=== PATIENT | female | born 1970 | race American Indian/Alaskan Native ===

== ENCOUNTER 2016-09-06 15:14 | Inpatient (IN) | payer SELFPAY ==
--- NOTE | 2016-09-06 15:45 | Emergency Department Report ---
ED Neuro Deficit HPI - General Chief Complaint: Neuro Symptoms/Deficit Stated Complaint: HIGH BP Time Seen by Provider: 09/06/16 15:40 Source: patient Mode of arrival: Ambulatory Limitations: No Limitations - History of Present Illness Initial Comments: This is a 45-year-old female. She is previously unknown to me. Has a past medical history of elevated blood pressure. Patient presents to the ER as a possible code stroke. As per verbal report from the triage nurse, the patient presented to the emergency room with left-sided weakness in the arm, and left facial droop and garbled speech. When I'm evaluating the patient, the symptoms have resolved. The patient complains of feeling globally weak. She reports that her body feels totally weak, and feels that her body is "totally dragging. " She has occipital headache. The headache is not sudden or thunderclap in nature. It did not reach maximal intensity within an hour. There is no chest pain. There is no shortness of breath. Patient reports her symptoms are constant. She thinks this started sometime between 12 PM and 1 PM. -: Gradual Location: speech, left face Presenting Symptoms: Present: Weak/Paralyzed One Side, Facial Droop/Numbness History of same: No Severity: moderate Quality: weak Improves With: none Worsens With: none On Anticoagulants: No Context: gradual onset Associated Symptoms: malise, weakness. denies: confusion, chest pain, cough, diaphoresis - Related Data Home Medications: Previous Rx's Medication Instructions Recorded Last Taken Type Lisinopril/Hydrochlorothiazide 1 tab PO QDAY #30 tablet 08/06/13 Unknown Rx [Zestoretic 20-25 mg] Meloxicam [Mobic] 7.5 mg PO QDAY #15 tablet 08/06/13 Unknown Rx Allergies/Adverse Reactions: Allergies Allergy/AdvReac Type Severity Reaction Status Date / Time No Known Allergies Allergy Verified 08/05/13 20:42 ED Review of Systems ROS: Stated complaint: HIGH BP Other details as noted in HPI Constitutional: malaise, weakness Eyes: denies: vision change ENT: denies: epistaxis Respiratory: denies: cough Cardiovascular: denies: chest pain Gastrointestinal: denies: abdominal pain, nausea, diarrhea Genitourinary: denies: urgency, dysuria, discharge Musculoskeletal: denies: back pain, joint swelling, arthralgia Skin: denies: rash, lesions Neurological: headache, weakness Psychiatric: depression ED Past Medical Hx - Past Medical History Previous Medical History?: Yes Hx Hypertension: Yes (out of meds) Hx Arthritis: Yes Hx Asthma: Yes - Surgical History Past Surgical History?: No - Social History Smoking Status: Never Smoker Substance Use Type: Alcohol, Prescribed - Medications Home Medications: Home Medications Medication Instructions Recorded Confirmed Last Taken Type Lisinopril/Hydrochlorothiazide 1 tab PO QDAY #30 tablet 08/06/13 Unknown Rx [Zestoretic 20-25 mg] Meloxicam [Mobic] 7.5 mg PO QDAY #15 tablet 08/06/13 Unknown Rx ED Neuro Physical Exam - General Limitations: No Limitations General appearance: alert, in no apparent distress Suspected Stroke: Yes - Head Head exam: Present: atraumatic, normocephalic - Eye Eye exam: Present: normal appearance, EOMI. Absent: nystagmus - ENT ENT exam: Present: normal exam, normal orophraynx, mucous membranes moist, normal external ear exam - Neck Neck exam: Present: normal inspection, full ROM. Absent: tenderness, meningismus - Respiratory Respiratory exam: Present: normal lung sounds bilaterally. Absent: respiratory distress, wheezes, rales, rhonchi, stridor, decreased breath sounds - Cardiovascular Cardiovascular Exam: Present: regular rate, normal rhythm, normal heart sounds. Absent: bradycardia, tachycardia, irregular rhythm, systolic murmur, diastolic murmur, rubs, gallop - GI/Abdominal GI/Abdominal exam: Present: soft, normal bowel sounds. Absent: distended, tenderness, guarding, rebound, rigid, pulsatile mass - Extremities Exam Extremities exam: Present: normal inspection, full ROM, normal capillary refill. Absent: tenderness, pedal edema, joint swelling, calf tenderness - Back Exam Back exam: Present: normal inspection, full ROM. Absent: tenderness, CVA tenderness (R), CVA tenderness (L), muscle spasm, paraspinal tenderness, vertebral tenderness - Neurological Exam Neurological exam: Present: alert, oriented X3, other (Extraocular movements intact. Tongue midline. No facial droop. Facial sensation intact to light touch in the V1, V2, V3 distribution bilaterally. 5 and 5 strength in 4 extremities.. Sensation is intact to light touch in 4 extremities.). Absent: motor sensory deficit - NIHSS Assessment Interval: Baseline 1a. Level of Consciousness: alert 1b. LOC Questions: answers correctly 1c. LOC Commands: performs tasks correctly 2. Best Gaze: normal 3. Visual: no visual loss 4. Facial Palsy: normal symmetrical movement 5b. Motor Arm Right: no drift 5a. Motor Arm Left: no drift 6a. Motor Leg Left: no drift 6b. Motor Leg Right: no drift 7. Limb Ataxia: absent 8. Sensory: normal 9. Best Language: no aphasia 10. Dysarthria: normal 11. Extinction/Inattention: no abnormality Total Score: 0 Stroke Severity: No Stroke Symptoms - Psychiatric Psychiatric exam: Present: anxious - Skin Skin exam: Present: warm, dry, intact, normal color. Absent: rash ED Course Vital Signs 09/06/16 09/06/16 09/06/16 15:20 16:07 17:00 Temperature 98.7 F Pulse Rate 63 60 99 H Respiratory 18 14 16 Rate Blood Pressure 190/133 Blood Pressure 194/83 183/105 [Left] O2 Sat by Pulse 100 100 99 Oximetry 09/06/16 09/06/16 09/06/16 17:20 18:00 18:30 Temperature 98.7 F Pulse Rate 74 96 H Respiratory 18 Rate Blood Pressure 180/105 Blood Pressure 171/53 [Left] O2 Sat by Pulse 96 99 Oximetry 09/06/16 18:51 Temperature 98.7 F Pulse Rate 95 H Respiratory 18 Rate Blood Pressure Blood Pressure 174/84 [Left] O2 Sat by Pulse 95 Oximetry - Reevaluation(s) Reevaluation #1: 09/06/16 15:46 Differential diagnosis: Transient ischemic attack, anxiety, conversion disorder assessment and plan: 45-year-old female with resolved garbled speech, no obvious facial droop on my examination, 5/5 strength in the bilateral upper and lower extremities. I don't believe patient is a TPA candidate at this time. A code stroke was called overhead. Laboratory studies, CT scan, tele neurology consult are ordered. The patient indicates that she is not . She indicates she is not having chest pain or abdominal pain. Reevaluation #2: 09/06/16 16:23 The patient is seen independently by the neurology specialist, Dr. Narinder Duvall, who independently agrees that the patient is not a TPA candidate. The patient's blood pressure is markedly elevated, may have a component of hypertensive encephalopathy. Aspirin, hydralazine is ordered. Case is discussed with the Hospital physician, Dr. Rocha, who accepts the patient to his service. - Lab Data Result diagrams: 09/06/16 Unknown 09/06/16 Unknown Lab Results 09/06/16 Range/Units 16:07 POC Glucose 81 (70-105) Vital Signs 09/06/16 15:20 Temperature 98.7 F Pulse Rate 63 Respiratory 18 Rate Blood Pressure 190/133 O2 Sat by Pulse 100 Oximetry 09/06/16 18:29 normal sinus, 63 bpm, normal intervals, normal axis, not morphologically consistent with stemi - Radiology Data Radiology results: report reviewed ct head negative - Core Measures Measure Exclusions: not indicated - Thrombolytic Inclusion/Exclusion Thrombolytic Contraindications: Rapidily Improving s/s Critical care attestation.: If time is entered above; I have spent that time in minutes in the direct care of this critically ill patient, excluding procedure time. ED Disposition Clinical Impression: Hypertensive urgency Disposition: OP ADMITTED IP TO THIS HOSP Is pt being admited?: Yes Does the pt Need Aspirin: Yes Condition: Good
[2016-09-06 15:58] LABS: Basophils % (Auto) 0.6 % (0.0-1.8); Eosinophils % (Auto) 3.1 % (0.0-4.3); Hematocrit 36.7 % (30.3-42.9); Hemoglobin 12.1 gm/dl (10.1-14.3); Mean Corpuscular HGB Conc 33 % (30-34); Mean Corpuscular Hemoglobin 26 pg (28-32); Mean Corpuscular Volume 80 fl (79-97); Platelet Count 264 K/mm3 (140-440); Red Blood Count 4.58 M/mm3 (3.65-5.03); Red Cell Distribution Width 13.2 % (13.2-15.2)
--- NOTE | 2016-09-06 16:02 | Cat Scan Report ---
HEAD CT WITHOUT CONTRAST INDICATION: Neurologic deficits less than 6 hours or symptoms present upon awakening. 98N. COMPARISON: 08/06/2013 FINDINGS: Noncontrast head CT demonstrates normal ventricles and sulci without acute or recent infarct, hemorrhage, mass effect or midline shift. No abnormal extra-axial fluid collections. Posterior fossa structures and basilar cisterns appear within normal limits. Mild left posterior ethmoid air cell opacification and approximately 8 mm right sphenoid sinus mucous retention cyst or thickening, axial image 5, series 3. Otherwise clear imaged paranasal sinuses and mastoid air cells. Intact calvarium. Normal scalp soft tissues. Small radiopaque dental filling. Bilateral earrings. CONCLUSION: No acute intracranial CT abnormality with few other findings, as above. MRI is more sensitive for detection of acute infarct and may be useful for further evaluation in the setting of a focal neurologic deficit. I phoned the above results to Dr. Hill in the ER, 3:54 PM, 09/06/2016. Thank you for the opportunity to participate in this patient's care.
[2016-09-06 16:08] LABS: INR 0.92 (0.87-1.13)
[2016-09-06 16:09] LABS: Partial Thromboplastin Time 25.5 Sec. (24.2-36.6)
[2016-09-06 16:19] LABS: Anion Gap 17 mmol/L; BUN/Creatinine Ratio 11.66; Blood Urea Nitrogen 7 mg/dL (7-17); Calcium 8.8 mg/dL (8.4-10.2); Carbon Dioxide 22 mmol/L (22-30); Chloride 101.4 mmol/L (98-107); Glucose 82 mg/dL (65-100); Potassium 3.5 mmol/L (3.6-5.0); Sodium 137 mmol/L (137-145)
[2016-09-06] MEDS ORDERED: APRESOLINE IV ONE (16:23)
[2016-09-06] MEDS ORDERED: BABY ASPIRIN PO ONE (16:25)
--- NOTE | 2016-09-06 19:10 | History and Physical Report ---
History of Present Illness Date of examination: 09/06/16 Date of admission: 09/06/16 18:29 Chief complaint: 09/06/2016 History of present illness: This is a 45-year-old female. Has a past medical history of elevated blood pressure. Patient presents to the ER as a possible code stroke. As per verbal report from the triage nurse, the patient presented to the emergency room with left-sided weakness in the arm, and left facial droop and garbled speech. During my examination the symptoms have resolved. The patient complains of feeling globally weak. She reports that her body feels totally weak, and feels that her body is "totally dragging." She has occipital headache. The headache is not sudden or thunderclap in nature. It did not reach maximal intensity within an hour. There is no chest pain. There is no shortness of breath. Patient reports her symptoms are constant. She thinks this started sometime between 12 PM and 1 PM. Symptoms have resolved.Her Bp is high in ER. Past History Past Medical History: hypertension, other (Asthma) Past Surgical History: No surgical history Social history: alcohol abuse (Alcohol occasionally). denies: smoking Family history: hypertension Medications and Allergies Allergies Allergy/AdvReac Type Severity Reaction Status Date / Time No Known Allergies Allergy Verified 08/05/13 20:42 Home Medications Medication Instructions Recorded Confirmed Last Taken Type Lisinopril/Hydrochlorothiazide 1 tab PO QDAY #30 tablet 08/06/13 Unknown Rx [Zestoretic 20-25 mg] Meloxicam [Mobic] 7.5 mg PO QDAY #15 tablet 08/06/13 Unknown Rx Review of Systems All systems: negative Constitutional: no weight loss, no weight gain Ears, nose, mouth and throat: no ear pain, no ear discharge, no tinnitis, no decreased hearing, no nose pain, no nasal congestion, no nasal discharge, no sinus pressure, no sinus pain Breasts: deferred Cardiovascular: no chest pain, no orthopnea, no palpitations, no rapid/ irregular heart beat, no edema, no syncope, no lightheadedness, no shortness of breath Respiratory: no cough, no cough with sputum, no excessive sputum, no hemoptysis , no shortness of breath, no dyspnea on exertion Gastrointestinal: no abdominal pain, no nausea, no vomiting, no diarrhea, no constipation, no change in bowel habits, no hematemesis, no coffee ground emesis Genitourinary Female: no pelvic pain, no flank pain, no menorrhagia, no dysuria , no urinary frequency, no urgency, no stress incontinence, no post void dribbling, no incomplete emptying, no urge incontinence, no mixed incontinence, no difficulty voiding (O), no hematuria Menstruation: menses 1-7 days Musculoskeletal: no neck stiffness, no neck pain, no shooting arm pain, no arm numbness/tingling, no low back pain, no shooting leg pain, no leg numbness/ tingling, no redness of joints Integumentary: no rash, no pruritis, no redness, no sores, no wounds, no jaundice, no boils, no blisters Neurological: numbness, no seizures, no syncope Psychiatric: no anxiety (a), no depression ( is a) Endocrine: no cold intolerance, no heat intolerance, no polyphagia, no excessive thirst, no polydipsia, no polyuria, no nocturia, no excessive sweating , no flushing, no weight change Hematologic/Lymphatic: no easy bruising, no easy bleeding Allergic/Immunologic: no urticaria, no allergic rhinitis, no wheezing Exam - Physical Exam Narrative exam: Well developed well nourished - Constitutional Vitals: Temp Pulse Resp BP Pulse Ox 98.7 F 95 H 18 174/84 95 09/06/16 18:51 09/06/16 18:51 09/06/16 18:51 09/06/16 18:51 09/06/16 18:51 General appearance: Present: no acute distress, well-nourished - EENT Eyes: Present: PERRL ENT: hearing intact, clear oral mucosa - Neck Neck: Present: supple, normal ROM - Respiratory Respiratory effort: normal Respiratory: bilateral: CTA - Cardiovascular Heart rate: 76 Rhythm: regular Heart Sounds: Present: S1 & S2. Absent: rub, click - Extremities Extremities: pulses symmetrical, No edema Peripheral Pulses: within normal limits - Abdominal General gastrointestinal: Present: soft, non-tender, non-distended, normal bowel sounds Female genitourinary: Present: normal - Rectal Rectal Exam: deferred - Integumentary Integumentary: Present: clear, warm, dry - Musculoskeletal Musculoskeletal: gait normal, strength equal bilaterally - Psychiatric Psychiatric: appropriate mood/affect, intact judgment & insight - Neurologic Neurologic: CNII-XII intact, moves all extremities - Allied Health Allied health notes reviewed: nursing, case management Results - Labs CBC & Chem 7: 09/06/16 Unknown 09/06/16 Unknown Labs: Laboratory Last Values WBC 7.0 K/mm3 (4.5-11.0) 09/06/16 Unknown RBC 4.58 M/mm3 (3.65-5.03) 09/06/16 Unknown Hgb 12.1 gm/dl (10.1-14.3) 09/06/16 Unknown Hct 36.7 % (30.3-42.9) 09/06/16 Unknown MCV 80 fl (79-97) 09/06/16 Unknown MCH 26 pg (28-32) L 09/06/16 Unknown MCHC 33 % (30-34) 09/06/16 Unknown RDW 13.2 % (13.2-15.2) 09/06/16 Unknown Plt Count 264 K/mm3 (140-440) 09/06/16 Unknown Lymph % (Auto) 39.7 % (13.4-35.0) H 09/06/16 Unknown [place] % (Auto) 6.5 % (0.0-7.3) 09/06/16 Unknown Eos % (Auto) 3.1 % (0.0-4.3) 09/06/16 Unknown Baso % (Auto) 0.6 % (0.0-1.8) 09/06/16 Unknown Lymph # 2.8 K/mm3 (1.2-5.4) 09/06/16 Unknown [place] # 0.5 K/mm3 (0.0-0.8) 09/06/16 Unknown Eos # 0.2 K/mm3 (0.0-0.4) 09/06/16 Unknown Baso # 0.0 K/mm3 (0.0-0.1) 09/06/16 Unknown Seg Neutrophils % 50.1 % (40.0-70.0) 09/06/16 Unknown Seg Neutrophils # 3.5 K/mm3 (1.8-7.7) 09/06/16 Unknown PT 12.3 Sec. (12.2-14.9) 09/06/16 Unknown INR 0.92 (0.87-1.13) 09/06/16 Unknown APTT 25.5 Sec. (24.2-36.6) 09/06/16 Unknown Thrombin Time 16.5 Sec. (15.1-19.6) 09/06/16 Unknown Sodium 137 mmol/L (137-145) 09/06/16 Unknown Potassium 3.5 mmol/L (3.6-5.0) L 09/06/16 Unknown Chloride 101.4 mmol/L (98-107) 09/06/16 Unknown Carbon Dioxide 22 mmol/L (22-30) 09/06/16 Unknown Anion Gap 17 mmol/L 09/06/16 Unknown BUN 7 mg/dL (7-17) 09/06/16 Unknown Creatinine 0.6 mg/dL (0.7-1.2) L 09/06/16 Unknown Estimated GFR > 60 ml/min 09/06/16 Unknown BUN/Creatinine Ratio 11.66 % 09/06/16 Unknown Glucose 82 mg/dL (65-100) 09/06/16 Unknown Calcium 8.8 mg/dL (8.4-10.2) 09/06/16 Unknown Troponin T < 0.010 ng/mL (0.00-0.029) 09/06/16 Unknown HCG, Quant < 2 mIU/mL (0-4) 09/06/16 Unknown - Imaging and Cardiology EKG: report reviewed ([facility] ) Assessment and Plan Advance Directives: Yes (full code) VTE prophylaxis?: Chemical Plan of care discussed with patient/family: Yes - Patient Problems (1) Hypertensive urgency Current Visit: Yes Status: Acute Plan to address problem: Adjust meds .Add Losartan 100 mg po qd And Coreg 12.5 q12h Hydralazine 10 mg q3 prn (2) TIA (transient ischemic attack) Current Visit: Yes Status: Resolved Qualifiers: Transient cerebral ischemia type: carotid artery syndrome (hemispheric) Qualified Code(s): G45.1 - Carotid artery syndrome (hemispheric) Plan to address problem: Resolved Check MRI and MRA (3) DVT prophylaxis Current Visit: Yes Status: Acute Plan to address problem: Lovenox 40 mg sq qd
[2016-09-06] MEDS ORDERED: ZOFRAN IV PRN (19:27)
[2016-09-06] MEDS ORDERED: DILAUDID IV PRN (19:27)
[2016-09-06] MEDS ORDERED: TYLENOL PO PRN (19:27)
[2016-09-06] MEDS ORDERED: MILK OF MAGNESIA PO PRN (19:27)
[2016-09-06] MEDS ORDERED: DULCOLAX PR PRN (19:27)
[2016-09-06] MEDS ORDERED: COZAAR ONE ×2 (19:50→19:52)
[2016-09-06] MEDS: COZAAR PO SCH (20:19)
[2016-09-06] MEDS: COREG PO SCH (22:16)
[2016-09-07 05:40] LABS: Basophils % (Auto) 0.9 % (0.0-1.8); Hematocrit 35.3 % (30.3-42.9); Hemoglobin 11.4 gm/dl (10.1-14.3); Mean Corpuscular HGB Conc 32 % (30-34); Mean Corpuscular Hemoglobin 26 pg (28-32); Mean Corpuscular Volume 81 fl (79-97); Platelet Count 281 K/mm3 (140-440); Red Blood Count 4.38 M/mm3 (3.65-5.03); Red Cell Distribution Width 13.5 % (13.2-15.2); White Blood Count 6.2 K/mm3 (4.5-11.0)
[2016-09-07 05:56] LABS: Alanine Aminotransferase 10 units/L (7-56); Albumin 3.4 g/dL (3.9-5); Albumin/Globulin Ratio 1.2 %; Alkaline Phosphatase 62 units/L (35-129); Anion Gap 15 mmol/L; Bilirubin,Total 0.2 mg/dL (0.1-1.2); Blood Urea Nitrogen 12 mg/dL (7-17); Calcium 8.7 mg/dL (8.4-10.2); Carbon Dioxide 24 mmol/L (22-30); Chloride 103.7 mmol/L (98-107); Glucose 101 mg/dL (65-100); Potassium 3.6 mmol/L (3.6-5.0); Sodium 139 mmol/L (137-145); Total Protein 6.3 g/dL (6.3-8.2)
--- NOTE | 2016-09-07 09:22 | Admit Criteria Form ---
Admission Criteria Documentation: HYPERTENSION Clinical Indications for Admission to Inpatient Care ( Place "X" for any and all applicable criteria): Admission is indicated for ANY ONE of the following(1)(2)(3)(4): [ ]I. Hypertensive emergency, with evidence of acute and progressing target organ disease as indicated by ANY ONE of the following: [ ]a) Hypertensive encephalopathy (eg, confusion, altered mental status) [ ]b) Cerebral infarction [ ]c) Intracranial hemorrhage [ ]d) Myocardial ischemia or infarction [ ]e) Pulmonary edema [ ]f) Aortic dissection [ ]g) Seizure [ ]h) Acute renal insufficiency [ ]i) Papilledema [ ]j) Microangiopathic hemolytic anemia [ ]II. Adrenergic crisis (eg, severe hypertension due to pheochromocytoma crisis, cocaine or amphetamine intoxication, or clonidine withdrawal) [X]III. Severe hypertension (SBP greater than 180 mmHg or DBP greater than 110 mmHg or greater than the 95th percentile for age, gender, and height in pediatric patients) that cannot be controlled (eg, to SBP less than 160 mmHg and DBP less than 100 mmHg in adults) by treatment with oral medication in emergency department or observation care Extended stay beyond goal length of stay may be needed for(11)(12)(13): [ ]a) Persistent hypertensive encephalopathy [ ]b) Continuation of pulmonary edema [ ]c) Recurring or persistent severe hypertension [ ]d) Target organ damage (eg, angina, stroke, aortic dissection) [ ]e) Associated renal insufficiency The original [employer] content created by [employer] has been revised. The portions of the content which have been revised are identified through the use of italic text or in bold, and [facility] has neither reviewed nor approved the modified material. All other unmodified content is copyright [facility]. Please see references footnoted in the original [facility] edition 2016 Admission Criteria Met: Yes
--- NOTE | 2016-09-07 11:52 | Magnetic Resonance Report ---
MRI OF THE BRAIN WITHOUT CONTRAST: HISTORY: TIA PROCEDURE: Multiplanar, multisequence MR imaging of the brain without IV contrast was performed. FINDINGS: The brain parenchyma signal intensity and its blank white interface are within normal limits on all sequences. No evidence for acute ischemia, hemorrhage or mass. No chronic infarct or extra-axial fluid collection. The midline structures are central. The basal cisterns are patent. Normal ventricular size. The orbital cavities and sella turcica demonstrate no abnormality. The visualized paranasal sinuses and mastoid air cells are well aerated. IMPRESSION: Unremarkable non-enhanced MRI of the brain.
--- NOTE | 2016-09-07 11:53 | Magnetic Resonance Report ---
MRA HEAD WITHOUT CONTRAST HISTORY: TIA. [id number] imaging with MIP reformations of the [place] is submitted. The arteries appear widely patent and free of hemodynamically significant stenosis or aneurysm dilatation. Both vertebral arteries are identified appearing patent as well. IMPRESSION: Unremarkable MRA head.
[2016-09-07] MEDS: COREG PO SCH (12:19)
[2016-09-07] MEDS: COZAAR PO SCH (12:19)
[2016-09-07] MEDS: PERCOCET 5/325 PO PRN (18:14)
[2016-09-07] MEDS: HCTZ PO SCH (18:15)
[2016-09-07] MEDS: ZESTRIL PO SCH (18:15)
--- NOTE | 2016-09-07 18:53 | Progress Note ---
Assessment and Plan Assessment and plan: 1. Uncontrolled htn due to noncompliance with home meds, meds have been restarted 2. Migraine KAT fup MR brain Head ache now resolved 3. Hospitalist Physical - Constitutional Vitals: Temp Pulse Resp BP Pulse Ox 98.2 F 76 18 170/69 99 09/07/16 08:50 09/07/16 12:19 09/07/16 10:00 09/07/16 12:19 09/07/16 10:00 General appearance: Present: no acute distress, well-nourished Results - Labs CBC & Chem 7: 09/07/16 04:32 09/07/16 04:32 Labs: Laboratory Last Values WBC 6.2 K/mm3 (4.5-11.0) 09/07/16 04:32 RBC 4.38 M/mm3 (3.65-5.03) 09/07/16 04:32 Hgb 11.4 gm/dl (10.1-14.3) 09/07/16 04:32 Hct 35.3 % (30.3-42.9) 09/07/16 04:32 MCV 81 fl (79-97) 09/07/16 04:32 MCH 26 pg (28-32) L 09/07/16 04:32 MCHC 32 % (30-34) 09/07/16 04:32 RDW 13.5 % (13.2-15.2) 09/07/16 04:32 Plt Count 281 K/mm3 (140-440) 09/07/16 04:32 Lymph % (Auto) 38.7 % (13.4-35.0) H 09/07/16 04:32 [place] % (Auto) 8.1 % (0.0-7.3) H 09/07/16 04:32 Eos % (Auto) 4.0 % (0.0-4.3) 09/07/16 04:32 Baso % (Auto) 0.9 % (0.0-1.8) 09/07/16 04:32 Lymph # 2.4 K/mm3 (1.2-5.4) 09/07/16 04:32 [place] # 0.5 K/mm3 (0.0-0.8) 09/07/16 04:32 Eos # 0.2 K/mm3 (0.0-0.4) 09/07/16 04:32 Baso # 0.1 K/mm3 (0.0-0.1) 09/07/16 04:32 Seg Neutrophils % 48.3 % (40.0-70.0) 09/07/16 04:32 Seg Neutrophils # 3.0 K/mm3 (1.8-7.7) 09/07/16 04:32 PT 12.3 Sec. (12.2-14.9) 09/06/16 Unknown INR 0.92 (0.87-1.13) 09/06/16 Unknown APTT 25.5 Sec. (24.2-36.6) 09/06/16 Unknown Thrombin Time 16.5 Sec. (15.1-19.6) 09/06/16 Unknown Sodium 139 mmol/L (137-145) 09/07/16 04:32 Potassium 3.6 mmol/L (3.6-5.0) 09/07/16 04:32 Chloride 103.7 mmol/L (98-107) 09/07/16 04:32 Carbon Dioxide 24 mmol/L (22-30) 09/07/16 04:32 Anion Gap 15 mmol/L 09/07/16 04:32 BUN 12 mg/dL (7-17) 09/07/16 04:32 Creatinine 0.6 mg/dL (0.7-1.2) L 09/07/16 04:32 Estimated GFR > 60 ml/min 09/07/16 04:32 BUN/Creatinine Ratio 20.00 % 09/07/16 04:32 Glucose 101 mg/dL (65-100) H 09/07/16 04:32 POC Glucose 81 (70-105) 09/06/16 16:07 Hemoglobin A1c 5.2 % (4-6) 09/06/16 20:16 Calcium 8.7 mg/dL (8.4-10.2) 09/07/16 04:32 Total Bilirubin 0.2 mg/dL (0.1-1.2) 09/07/16 04:32 AST 15 units/L (5-40) 09/07/16 04:32 ALT 10 units/L (7-56) 09/07/16 04:32 Alkaline Phosphatase 62 units/L (35-129) 09/07/16 04:32 Troponin T < 0.010 ng/mL (0.00-0.029) 09/06/16 Unknown Total Protein 6.3 g/dL (6.3-8.2) 09/07/16 04:32 Albumin 3.4 g/dL (3.9-5) L 09/07/16 04:32 Albumin/Globulin Ratio 1.2 % 09/07/16 04:32 HCG, Quant < 2 mIU/mL (0-4) 09/06/16 Unknown
[2016-09-08] MEDS: PERCOCET 5/325 PO PRN (04:12)
[2016-09-08 09:28] VITALS: BP 160/80
[2016-09-08] MEDS: HCTZ PO SCH (10:00)
[2016-09-08] MEDS: ZESTRIL PO SCH (10:00)
--- NOTE | 2016-09-08 10:57 | Discharge Summary ---
Providers - Providers Date of Admission: 09/06/16 18:29 Attending physician: EVELINE TAPIA MD 09/07/16 08:50 Physical Therapy Evaluation and Treat [CONS] Routine Comment: Reason For Exam: cva 09/07/16 08:51 Occupational Therapy Evaluate and Treat [CONS] Routine Comment: Reason For Exam: CVA Primary care physician: [facility] Hospitalization Condition: Good Disposition: STILL A PATIENT Exam - Constitutional Vitals: Temp Pulse Resp BP Pulse Ox 97.7 F 61 18 160/80 99 09/08/16 09:26 09/08/16 09:26 09/08/16 09:26 09/08/16 09:26 09/08/16 09:26 Plan Follow up with: PRIMARY MD ADONAY [Primary Care Provider] - 3-5 Days Prescriptions: Hydrochlorothiazide [HCTZ] 25 mg PO QDAY #30 tablet Lisinopril [Zestril TAB] 40 mg PO QDAY #30 tablet
== END 2016-09-08 14:40 | disposition home or self-care (01) | DRG 305 ==
LOC: ED 15:14 → 4A 18:29
PROVIDERS: ADMIT Internal Medicine; ATTEND Internal Medicine
DX: I16.0 Hypertensive urgency (principal); G45.1 Carotid artery syndrome (hemispheric); I10 Essential (primary) hypertension; M19.90 Unspecified osteoarthritis, unspecified site; F10.10 Alcohol abuse, uncomplicated; R51 Headache; Z82.49 Family history of ischemic heart disease and other diseases of the circulatory system; Z91.14 Patient's other noncompliance with medication regimen
CPT/HCPCS: 36415; 70450; 70544; 70551; 80048; 80053; 82962; 83036; 84484; 84702; 85025; 85610; 85670; 85730; 93005; 93010; 93880; 96374; J0360

== ENCOUNTER 2016-12-01 20:30 | Emergency (ER) | payer SELFPAY ==
--- NOTE | 2016-12-02 02:53 | Emergency Department Report ---
ED Back Pain/Injury HPI - General Chief Complaint: Back Pain/Injury Stated Complaint: BACK PAIN Time Seen by Provider: 12/02/16 02:36 Source: patient Limitations: No Limitations - History of Present Illness Initial Comments: 45F PMH Asthma, HTN p/w c/o lower back pain x4 days. Denies any direct injury, no falls, no fever, no chills, denies dysuria, no rash. Patient is awake alert and oriented 3. Patient states that when she bends forward or backward or turns her trunk or if she coughs or expands her chest with the breath that her lower back hurts more. Denies any shortness of breath or chest pain. No nausea vomiting, no reports of diarrhea. MD Complaint: back pain Onset/Timin -: days(s) Similar Symptoms Previously: No Place: home Radiation: none Severity: moderate Severity scale (0 -10): 5 Quality: aching Consistency: intermittent Worsens With: movement Context: while lifting, turning/twisting, bending Associated Symptoms: denies other symptoms - Related Data Previous Rx's Medication Instructions Recorded Last Taken Type Hydrochlorothiazide [HCTZ] 25 mg PO QDAY #30 tablet 09/08/16 Unknown Rx Lisinopril [Zestril TAB] 40 mg PO QDAY #30 tablet 09/08/16 Unknown Rx Polyethylene Glycol 3350 [Miralax 17 gm PO QDAY #30 packet 09/08/16 Unknown Rx 3350] Sennosides/Docusate Sodium 2 each PO HS PRN #60 tablet 09/08/16 Unknown Rx [Senna-Docusate Sodium Tablet] Acetaminophen/Codeine [Tylenol 1 tab PO Q6H PRN #12 tab 12/02/16 Unknown Rx /Codeine # 3 tab] Naproxen [Naprosyn TAB] 375 mg PO BID PRN #25 tablet 12/02/16 Unknown Rx Allergies Allergy/AdvReac Type Severity Reaction Status Date / Time No Known Allergies Allergy Verified 08/05/13 20:42 ED Review of Systems ROS: Stated complaint: BACK PAIN Other details as noted in HPI Constitutional: denies: chills, fever Eyes: denies: eye pain, eye discharge, vision change ENT: denies: ear pain, throat pain Respiratory: denies: cough, shortness of breath, wheezing Cardiovascular: denies: chest pain, palpitations Endocrine: no symptoms reported Gastrointestinal: denies: abdominal pain, nausea, diarrhea Genitourinary: denies: urgency, dysuria, discharge Musculoskeletal: back pain. denies: joint swelling, arthralgia Skin: denies: rash, lesions Neurological: denies: headache, weakness, paresthesias Psychiatric: denies: anxiety, depression Hematological/Lymphatic: denies: easy bleeding, easy bruising ED Past Medical Hx - Past Medical History Previous Medical History?: Yes Hx Hypertension: Yes Hx Congestive Heart Failure: No Hx Diabetes: No Hx Arthritis: Yes Hx Asthma: Yes Hx COPD: No - Surgical History Past Surgical History?: No - Social History Smoking Status: Never Smoker Substance Use Type: None - Medications Home Medications: Home Medications Medication Instructions Recorded Confirmed Last Taken Type Hydrochlorothiazide [HCTZ] 25 mg PO QDAY #30 tablet 09/08/16 Unknown Rx Lisinopril [Zestril TAB] 40 mg PO QDAY #30 tablet 09/08/16 Unknown Rx Polyethylene Glycol 3350 [Miralax 17 gm PO QDAY #30 packet 09/08/16 Unknown Rx 3350] Sennosides/Docusate Sodium 2 each PO HS PRN #60 tablet 09/08/16 Unknown Rx [Senna-Docusate Sodium Tablet] Acetaminophen/Codeine [Tylenol 1 tab PO Q6H PRN #12 tab 12/02/16 Unknown Rx /Codeine # 3 tab] Naproxen [Naprosyn TAB] 375 mg PO BID PRN #25 tablet 12/02/16 Unknown Rx ED Physical Exam - General Limitations: No Limitations General appearance: alert, in no apparent distress - Head Head exam: Present: atraumatic, normocephalic - Eye Eye exam: Present: normal appearance, PERRL, EOMI - ENT ENT exam: Present: mucous membranes moist - Neck Neck exam: Present: normal inspection - Respiratory Respiratory exam: Present: normal lung sounds bilaterally. Absent: respiratory distress - Cardiovascular Cardiovascular Exam: Present: regular rate, normal rhythm. Absent: systolic murmur, diastolic murmur, rubs, gallop - GI/Abdominal GI/Abdominal exam: Present: soft, normal bowel sounds - Extremities Exam Extremities exam: Present: normal inspection - Back Exam Back exam: Present: normal inspection, full ROM (back flexion and extension intact although painful with back flexion), CVA tenderness (R) (positive slight CVA tenderness on the right and left, worse on left), CVA tenderness (L) - Neurological Exam Neurological exam: Present: alert, oriented X3, CN II-XII intact, normal gait - Psychiatric Psychiatric exam: Present: normal affect, normal mood - Skin Skin exam: Present: warm, dry, intact, normal color. Absent: rash ED Course Vital Signs 12/01/16 21:38 Temperature 98.5 F Pulse Rate 82 Respiratory 18 Rate Blood Pressure 161/98 O2 Sat by Pulse 100 Oximetry ED Medical Decision Making - Lab Data Result diagrams: 12/02/16 03:01 12/02/16 03:01 - Medical Decision Making A/P: Lower back pain, renal colic, renal mass 1-BUN/creatinine within normal limits, CK minimally elevated (200s), CBC within normal limits. Negative urine , UA shows moderate blood noted nitrites no bacteria 2-CT abdomen and pelvis noncontrast suggests 2 mm stone in the left kidney no hydronephrosis and a 2.8 cm left-sided kidney mass. I made the patient aware of these findings and advised her to follow up with primary care as well as outpatient nephrology. Patient's current kidney function is normal with no obstructing stone and no hydronephrosis and no signs of infection.no necessity for acute intervention at this time. Patient stated that she understood the explanation of my result and will follow-up accordingly with the referrals that I give 3-naproxen when necessary, short course Tylenol 3 when necessary 4- I advised the patient to maintain adequately hydrated and drink at least 2- 3L of water per day Critical care attestation.: If time is entered above; I have spent that time in minutes in the direct care of this critically ill patient, excluding procedure time. ED Disposition Clinical Impression: Renal mass, left, Renal colic on left side Lower back pain Qualifiers: Chronicity: acute Back pain laterality: bilateral Sciatica presence: without sciatica Qualified Code(s): M54.5 - Low back pain Disposition: TO HOME OR SELFCARE Is pt being admited?: No Does the pt Need Aspirin: No Condition: Stable Instructions: Renal Colic (ED), Acute Low Back Pain (ED) Prescriptions: Acetaminophen/Codeine [Tylenol /Codeine # 3 tab] 1 tab PO Q6H PRN #12 tab PRN Reason: Pain Naproxen [Naprosyn TAB] 375 mg PO BID PRN #25 tablet PRN Reason: Pain Referrals: ARVIN MOSS MD [Staff Physician] - 3-5 Days MICHAELA DO MD [Staff Physician] - 3-5 Days Forms: Work/School Release Form(ED) Time of Disposition: 06:19
[2016-12-02 03:20] LABS: Basophils % (Auto) 0.9 % (0.0-1.8); Eosinophils % (Auto) 1.6 % (0.0-4.3); Hematocrit 36.8 % (30.3-42.9); Hemoglobin 11.9 gm/dl (10.1-14.3); Mean Corpuscular HGB Conc 32 % (30-34); Mean Corpuscular Volume 80 fl (79-97); Platelet Count 298 K/mm3 (140-440); Red Blood Count 4.61 M/mm3 (3.65-5.03); Red Cell Distribution Width 13.9 % (13.2-15.2); White Blood Count 10.1 K/mm3 (4.5-11.0)
[2016-12-02 03:24] LABS: Mean Corpuscular Hemoglobin 26 pg (28-32)
[2016-12-02 03:43] LABS: Anion Gap 14 mmol/L; BUN/Creatinine Ratio 18.33; Blood Urea Nitrogen 11 mg/dL (7-17); Calcium 8.9 mg/dL (8.4-10.2); Carbon Dioxide 27 mmol/L (22-30); Chloride 103.8 mmol/L (98-107); Creatine Kinase 238 units/L (30-135); Glucose 105 mg/dL (65-100); Potassium 3.8 mmol/L (3.6-5.0); Sodium 141 mmol/L (137-145)
[2016-12-02 04:05] LABS: Bacteria,Urine 1+ /HPF (Negative); Bilirubin,Urine NEG (Negative); Blood,Urine MOD (Negative); Ketones,Urine NEG (Negative); Leukocyte Esterase,Urine TR (Negative); Mucus,Urine FEW /HPF; Nitrite,Urine NEG (Negative)
[2016-12-02] MEDS ORDERED: MOTRIN PO ONE (05:09)
--- NOTE | 2016-12-02 05:34 | Cat Scan Report ---
FINAL REPORT PROCEDURE: CT ABDOMEN PELVIS WO CON TECHNIQUE: Computerized axial tomography of the abdomen and pelvis was performed without intravenous contrast. This study is performed without intravascular contrast material and its sensitivity for abdominal and pelvic pathology, including neoplasms, inflammation, abscess, free fluid, thrombosis, arterial dissection and infarction, is reduced compared with a contrast enhanced study. HISTORY: ?kideny stone c/o lower back pain X 4 days , mod blood UA COMPARISON: No prior studies are available for comparison. FINDINGS: Visualized lower thorax: No significant abnormality. Liver: There are numerous hypodensities in the liver suggesting cysts. There is no mass.. Spleen: Normal size and attenuation. Gallbladder and biliary system: Normal. Pancreas: Normal. Adrenals: Normal. Kidneys: There is a 2 millimeter stone in the midpole of the left kidney. There are no ureteral stones. There is no hydronephrosis. There is an isodense cortical mass arising from the midpole of the left kidney measuring 2.8 centimeters. Solid tumor cannot be excluded. Contrast-enhanced CT, ultrasound or MRI may be helpful.. GI tract: There are diverticula of the colon. There is no diverticulitis, colitis, obstruction or mass. The appendix is normal.. Lymph nodes and mesentery: Normal. Vasculature: Normal. Bladder: Normal. Reproductive organs: Uterus and ovaries are unremarkable.. Peritoneum: There is no ascites, free air, abscess or adenopathy. There is a ventral hernia containing fat only.. Musculoskeletal structures: No significant abnormality. Other: None. IMPRESSION: There are numerous hypodensities in the liver suggesting cysts. There is no mass.. There is a 2 millimeter stone in the midpole of the left kidney. There are no ureteral stones. There is no hydronephrosis. There is an isodense cortical mass arising from the midpole of the left kidney measuring 2.8 centimeters. Solid tumor cannot be excluded. Contrast-enhanced CT, ultrasound or MRI may be helpful.. There are diverticula of the colon. There is no diverticulitis, colitis, obstruction or mass. The appendix is normal.. Uterus and ovaries are unremarkable.. There is no ascites, free air, abscess or adenopathy. There is a ventral hernia containing fat only.. .
[2016-12-02 06:55] VITALS: BP 132/77
== END 2016-12-02 06:54 | disposition home or self-care (01) ==
LOC: ED 20:30
DX: N23 Unspecified renal colic (principal); N28.89 Other specified disorders of kidney and ureter; M19.90 Unspecified osteoarthritis, unspecified site; J45.909 Unspecified asthma, uncomplicated; I10 Essential (primary) hypertension
CPT/HCPCS: 36415; 74176; 80048; 81001; 81025; 82550; 85025; 87086

== ENCOUNTER 2017-07-04 23:31 | Emergency (ER) | payer SELFPAY ==
[2017-07-04 23:50] VITALS: BP 209/115
[2017-07-04] MEDS ORDERED: CATAPRES PO ONE (23:53)
[2017-07-05 00:54] LABS: Basophils # (Auto) 0.1 K/mm3 (0.0-0.1); Basophils % (Auto) 0.7 % (0.0-1.8); Eosinophils # (Auto) 0.2 K/mm3 (0.0-0.4); Hematocrit 39.5 % (30.3-42.9); Hemoglobin 12.4 gm/dl (10.1-14.3); Lymphocytes # (Auto) 3.1 K/mm3 (1.2-5.4); Lymphocytes % (Auto) 38.5 % (13.4-35.0); Mean Corpuscular HGB Conc 32 % (30-34); Mean Corpuscular Volume 81 fl (79-97); Monocytes # (Auto) 0.6 K/mm3 (0.0-0.8); Monocytes % (Auto) 6.9 % (0.0-7.3); Platelet Count 303 K/mm3 (140-440); Red Blood Count 4.86 M/mm3 (3.65-5.03); Red Cell Distribution Width 14.5 % (13.2-15.2)
[2017-07-05 00:59] LABS: BUN/Creatinine Ratio 18; Blood Urea Nitrogen 11 mg/dL (7-17); Hemolysis Index 6
[2017-07-05 01:15] LABS: Mean Corpuscular Hemoglobin 26 pg (28-32)
== END 2017-07-05 06:07 | disposition left against medical advice (07) ==
LOC: ED 23:31
DX: R07.9 Chest pain, unspecified (principal); Z53.21 Procedure and treatment not carried out due to patient leaving prior to being seen by health care provider
CPT/HCPCS: 36415; 80048; 84484; 85025; 93005; 93010